=== PATIENT | male | born 1980 | race Caucasian/White ===

== ENCOUNTER 2020-01-18 10:18 | Emergency (ER) | payer MEDICAID, OTHER ==
[~2020-01-18] VITALS: Ht 165.1 cm; Wt 55.0 kg
[2020-01-18 10:24] VITALS: BP 115/66
[2020-01-18 11:13] LABS: BASOPHILS # (AUTO) 0.1 X10'3 (0-0.2); BASOPHILS % (AUTO) 0.4 % (0-1); EOSINOPHILS % (AUTO) 0.1 % (0-6); HEMATOCRIT 39.1 % (42.0-52.0); HEMOGLOBIN 13.2 g/dl (14.0-17.9); LYMPHOCYTES # (AUTO) 2.1 X10'3 (1.1-4.8); LYMPHOCYTES % (AUTO) 13.3 % (21-51); MEAN CORPUSCULAR HGB CONC 33.7 g/dL (33.0-36.5); MEAN PLATELET VOLUME 9.5 FL (7.4-10.4); MONOCYTES # (AUTO) 0.9 X10'3 (0-0.9); MONOCYTES % (AUTO) 5.9 % (2-12); NEUTROPHILS # (AUTO) 12.5 X10'3 (1.8-7.7); NEUTROPHILS % (AUTO) 80.3 % (42-75); PLATELET COUNT 232 X10'3 (140-440); RED BLOOD COUNT 4.25 X10'6 (4.70-6.10); RED CELL DISTRIBUTION WIDTH 13.6 % (11.5-14.5); WHITE BLOOD COUNT 15.6 X10'3 (4.5-11.0)
[2020-01-18 11:25] LABS: PARTIAL THROMBOPLASTIN TIME 34 SECONDS (22-32)
[2020-01-18 11:41] LABS: ALANINE AMINOTRANSFERASE 18 U/L (12-78); ALBUMIN 3.6 G/DL (3.4-5.0); ALBUMIN/GLOBULIN RATIO 0.9 (1.1-1.5); ALKALINE PHOSPHATASE 104 IU/L (46-116); ANION GAP 9 (8-16); ASPARTATE AMINO TRANSFERASE 16 U/L (10-37); BILIRUBIN,TOTAL 0.8 MG/DL (0.1-1.0); BLOOD UREA NITROGEN 15 MG/DL (7-18); BUN/CREATININE RATIO 12.3 (5.4-32.0); CALCIUM 9.1 MG/DL (8.5-10.1); CHLORIDE 102 MMOL/L (99-107); CREATININE 1.22 MG/DL (0.60-1.10); GLUCOSE 104 MG/DL (70-104); MAGNESIUM 1.7 MG/DL (1.5-2.4); SODIUM 137 MMOL/L (135-145); TOTAL CARBON DIOXIDE 25.8 MMOL/L (24-32); TOTAL PROTEIN 7.6 G/DL (6.4-8.2); eGFR 66 ML/MIN
[2020-01-18 11:42] LABS: POTASSIUM 2.9 MMOL/L (3.5-5.1)
[2020-01-18 12:27] LABS: CLARITY,URINE CLOUDY (Clear); COLOR,URINE YELLOW (Yellow); GLUCOSE, URINE NEGATIVE (Neg); KETONES,URINE TRACE mg/dl (Neg); LEUKOCYTE ESTERASE ,URINE TRACE (Neg); NITRITES, URINE NEGATIVE (Neg); OCCULT BLOOD,URINE SMALL (Neg); PH,URINE 5.5 (4.8-8.0); PROTEIN,URINE 100 mg/dl (Neg)
[2020-01-18 12:28] LABS: UA COLLECTION TYPE CLN CATCH MIDSTREAM
[2020-01-18 12:29] LABS: MUCUS STRANDS MODERATE /LPF (Neg); SQUAMOUS EPITHELIAL CELL,UR FEW /LPF (FEW)
[2020-01-18 12:30] LABS: BACTERIA,URINE 2+ /HPF (Neg); SPERM MANY /HPF (NEGATIVE)
[2020-01-18 12:31] LABS: CAL OXALATE CRYSTALS 1+ /HPF (NEGATIVE); WBC,URINE 20-30 /HPF (0-4)
[2020-01-18] MEDS ORDERED: piperacillin/tazo 3.375gm/50ml 50 ML IV ONE (12:50)
[2020-01-18] MEDS ORDERED: ABAC1TAB14 PO (16:21)
[2020-01-20] MEDS ORDERED: CLIN-5 PO (08:29)
[2020-01-20] MEDS ORDERED: HYDR-4383 PO (08:29)
== END 2020-01-18 12:59 | disposition left against medical advice (07) ==
LOC: ER 10:18
DX: L03.115 Cellulitis of right lower limb (principal); A41.9 Sepsis, unspecified organism; F17.200 Nicotine dependence, unspecified, uncomplicated; F12.90 Cannabis use, unspecified, uncomplicated
CPT/HCPCS: 36415; 71045; 80053; 81001; 83605; 83735; 84145; 85025; 85610; 85730; 87040; 87088; 93005; 99285

== ENCOUNTER 2020-02-07 04:35 | Emergency (ER) | payer MEDICAID, OTHER ==
[~2020-02-07] VITALS: Ht 165.1 cm; Wt 56.0 kg
[~2020-02-07 04:35] MED LIST: ABAC1TAB14 PO; HYDR-4383 PO
[2020-02-07 07:49] LABS: BASOPHILS # (AUTO) 0.1 X10'3 (0-0.2); BASOPHILS % (AUTO) 1.2 % (0-1); EOSINOPHILS # (AUTO) 0.2 X10'3 (0-0.9); EOSINOPHILS % (AUTO) 1.6 % (0-6); HEMATOCRIT 40.7 % (42.0-52.0); HEMOGLOBIN 13.8 g/dl (14.0-17.9); LYMPHOCYTES # (AUTO) 4.1 X10'3 (1.1-4.8); LYMPHOCYTES % (AUTO) 36.1 % (21-51); MEAN CORPUSCULAR HEMOGLOBIN 30.9 PG (27.0-31.0); MEAN CORPUSCULAR HGB CONC 33.8 g/dL (33.0-36.5); MEAN CORPUSCULAR VOLUME 91.4 FL (78-98); MONOCYTES # (AUTO) 0.9 X10'3 (0-0.9); MONOCYTES % (AUTO) 8.3 % (2-12); NEUTROPHILS # (AUTO) 5.9 X10'3 (1.8-7.7); NEUTROPHILS % (AUTO) 52.8 % (42-75); PLATELET COUNT 369 X10'3 (140-440); RED BLOOD COUNT 4.45 X10'6 (4.70-6.10); RED CELL DISTRIBUTION WIDTH 13.8 % (11.5-14.5); WHITE BLOOD COUNT 11.3 X10'3 (4.5-11.0)
[2020-02-07 08:01] LABS: ALANINE AMINOTRANSFERASE 22 U/L (12-78); ALBUMIN 3.3 G/DL (3.4-5.0); ALBUMIN/GLOBULIN RATIO 0.7 (1.1-1.5); ALKALINE PHOSPHATASE 143 IU/L (46-116); ANION GAP 9 (8-16); ASPARTATE AMINO TRANSFERASE 15 U/L (10-37); BILIRUBIN,TOTAL 0.4 MG/DL (0.1-1.0); BLOOD UREA NITROGEN 21 MG/DL (7-18); BUN/CREATININE RATIO 24.4 (5.4-32.0); CALCIUM 8.2 MG/DL (8.5-10.1); CHLORIDE 104 MMOL/L (99-107); CREATININE 0.86 MG/DL (0.60-1.10); GLUCOSE 107 MG/DL (70-104); POTASSIUM 3.7 MMOL/L (3.5-5.1); SODIUM 137 MMOL/L (135-145); TOTAL CARBON DIOXIDE 23.9 MMOL/L (24-32); eGFR > 90 ML/MIN
--- NOTE | 2020-02-07 10:18 | NUR ---
PT REMAINS SLEEPING IN POC. VSS. WAITING LAB RESULTS.
[2020-02-07 10:28] LABS: CREATINE KINASE 90 U/L (39-308)
[2020-02-07] MEDS ORDERED: ketorolac tromethamine 15mg/ml inj. IV ONE (11:35)
[2020-02-07] MEDS ORDERED: normal saline 1000ML IV soln IVB ONE (11:35)
[2020-02-07] MEDS ORDERED: morphine 4 MG/ML inj SYRINge IV ONE (11:35)
[2020-02-07] MEDS ORDERED: morphine 2 MG/ML inj. syringe IV PRN (11:35)
[2020-02-07] MEDS ORDERED: vancomycin/NS 1 GM ADD-VANTAGE 250 ML IV ONE (11:40)
[2020-02-07] MEDS ORDERED: CefTRIAXone 250MG IM Kit w/LIDOcaine IM ONE (12:15)
[2020-02-07] MEDS ORDERED: azithromycin 250mg tablet PO ONE (12:15)
[2020-02-07] MEDS ORDERED: TETanus/Pertussis (Acell)/Diphther VAC/PF (Tdap-Adult) 0.5ml syringe IMVAC ONE (12:45)
[2020-02-07] MEDS ORDERED: LIDOcaine 1% W/epiNEPHrine 1:200,000 10ml vial IJ ONE (12:45)
--- NOTE | 2020-02-07 12:58 | NUR ---
PROVIDER AT BED SIDE, PERFORMING WOUND CARE
[2020-02-07] MEDS ORDERED: CEPH250T PO (14:32)
[2020-02-07] MEDS ORDERED: AMOX-422 PO (14:32)
[2020-02-07] MEDS ORDERED: HYDR-3965 PO (14:32)
[2020-02-07] MEDS ORDERED: amox tr/potassium clavulanate 875/125mg TAB PO ONE (14:35)
[2020-02-07 15:13] VITALS: BP 123/78
--- NOTE | 2020-02-15 10:00 | NUR ---
PT CALLED REGARDING VISIT ON 02/07/20. NO ANSWER, MESSAGE LEFT TO CALL BACK [facility] FOR NEED OF TREATMENT.
--- NOTE | 2020-02-18 10:02 | NUR ---
PT CALLED REGARDING VISIT ON 02/07/20. NO ANSWER, MESSAGE LEFT TO CALL BACK [facility] FOR NEED OF TREATMENT.
--- NOTE | 2020-02-19 09:48 | NUR ---
PT CALLED AND NOTIFIED THAT HIS LAB RESULTS FROM 02/07/20 HAD A POSITIVE RPR FOR SYPHILIS. PT STATES THAT HE WAS NOTIFIED BY [facility]. PT INFORMED THAT HE NEEDE TO COME IN AND BE TX WITH [facility] SOON POSSIBLE AND THAT HE NEEDED TO NOTIFY ALL OF HIS INTIMATE CONTACTS SO THAT THEY ALSO COULD BE TREATED. PT STATED UNDERSTANDING.
== END 2020-02-07 15:14 | disposition home or self-care (01) ==
LOC: ER 04:36
DX: L02.811 Cutaneous abscess of head [any part, except face] (principal); L03.011 Cellulitis of right finger; F17.200 Nicotine dependence, unspecified, uncomplicated; F12.90 Cannabis use, unspecified, uncomplicated; Z20.2 Contact with and (suspected) exposure to infections with a predominantly sexual mode of transmission; Z79.2 Long term (current) use of antibiotics
CPT/HCPCS: 10061; 36415; 80053; 82550; 83874; 85025; 85651; 86140; 86592; 87491; 87591; 90471; 90715; 96365; 96366; 96372; 96375; 99284; J0696; J1885; J2270; J3370; J7030

== ENCOUNTER 2020-07-16 06:37 | Emergency (ER) | payer MEDICAID, OTHER ==
[~2020-07-16] VITALS: Ht 165.1 cm; Wt 63.5 kg
[2020-07-16 07:30] LABS: CLARITY,URINE SLIGHTLY CLOUDY (Clear); COLOR,URINE YELLOW (Yellow); GLUCOSE, URINE NEGATIVE (Neg); KETONES,URINE NEGATIVE (Neg); LEUKOCYTE ESTERASE ,URINE TRACE (Neg); NITRITES, URINE NEGATIVE (Neg); OCCULT BLOOD,URINE LARGE (Neg); PH,URINE 5.5 (4.8-8.0); PROTEIN,URINE NEGATIVE (Neg); UROBILINOGEN,URINE 0.2 E.U/dL (0.2-1.0)
[2020-07-16 07:33] LABS: UA COLLECTION TYPE CLN CATCH MIDSTREAM
[2020-07-16 07:36] LABS: WBC,URINE 50-100 /HPF (0-4)
[2020-07-16 07:37] LABS: BACTERIA,URINE FEW /HPF (Neg); CAL OXALATE CRYSTALS 1+ /HPF (NEGATIVE); RBC,URINE 50-100 /HPF (0-2); SQUAMOUS EPITHELIAL CELL,UR FEW /LPF (FEW)
[2020-07-16 07:38] LABS: FINE GRANULAR CAST 0-3 /LPF (NEGATIVE); WBC CLUMPS,URINE FEW /HPF (NEGATIVE)
[2020-07-16 07:39] LABS: MUCUS STRANDS FEW /LPF (Neg)
[2020-07-16 08:02] LABS: BASOPHILS # (AUTO) 0.1 X10'3 (0-0.2); BASOPHILS % (AUTO) 0.8 % (0-1); EOSINOPHILS # (AUTO) 0.2 X10'3 (0-0.9); EOSINOPHILS % (AUTO) 1.9 % (0-6); HEMATOCRIT 38.5 % (42.0-52.0); HEMOGLOBIN 13.2 g/dl (14.0-17.9); LYMPHOCYTES % (AUTO) 28.7 % (21-51); MEAN CORPUSCULAR HEMOGLOBIN 31.2 PG (27.0-31.0); MEAN CORPUSCULAR HGB CONC 34.2 g/dL (33.0-36.5); MEAN CORPUSCULAR VOLUME 91.1 FL (78-98); MONOCYTES # (AUTO) 0.9 X10'3 (0-0.9); MONOCYTES % (AUTO) 8.6 % (2-12); NEUTROPHILS # (AUTO) 6.4 X10'3 (1.8-7.7); PLATELET COUNT 278 X10'3 (140-440); RED BLOOD COUNT 4.22 X10'6 (4.70-6.10); RED CELL DISTRIBUTION WIDTH 13.5 % (11.5-14.5); WHITE BLOOD COUNT 10.6 X10'3 (4.5-11.0)
[2020-07-16 08:08] LABS: ALANINE AMINOTRANSFERASE 21 U/L (12-78); ALBUMIN 3.4 G/DL (3.4-5.0); ALBUMIN/GLOBULIN RATIO 0.9 (1.1-1.5); ALKALINE PHOSPHATASE 99 IU/L (46-116); ANION GAP 9 (8-16); ASPARTATE AMINO TRANSFERASE 18 U/L (10-37); BILIRUBIN,TOTAL 0.1 MG/DL (0.1-1.0); BLOOD UREA NITROGEN 24 MG/DL (7-18); BUN/CREATININE RATIO 16.1 (5.4-32.0); CALCIUM 8.8 MG/DL (8.5-10.1); CHLORIDE 105 MMOL/L (99-107); CREATININE 1.49 MG/DL (0.60-1.10); GLUCOSE 118 MG/DL (70-104); LIPASE 109 U/L (73-393); POTASSIUM 3.9 MMOL/L (3.5-5.1); SODIUM 139 MMOL/L (135-145); TOTAL CARBON DIOXIDE 25.2 MMOL/L (24-32); TOTAL PROTEIN 7.3 G/DL (6.4-8.2); eGFR 53 ML/MIN
[2020-07-16] MEDS ORDERED: azithromycin 250mg tablet PO ONE (08:55)
[2020-07-16] MEDS ORDERED: CefTRIAXone 250MG IM Kit w/LIDOcaine IM ONE (08:55)
[2020-07-16] MEDS ORDERED: iohexol 300mg/ml 100ml inj. ONE (09:03)
--- NOTE | 2020-07-16 09:14 | NUR ---
To CT via w/c.
[2020-07-16] MEDS ORDERED: tamsulosin 0.4mg capsule PO ONE (10:50)
[2020-07-16] MEDS ORDERED: tamsulosin 0.4mg capsule PO SCH (10:50)
[2020-07-16] MEDS ORDERED: PROC-8 PO (10:53)
[2020-07-16] MEDS ORDERED: FLO0.4C PO (10:53)
[2020-07-16] MEDS ORDERED: ACET-3068 PO (10:53)
[2020-07-16 11:15] VITALS: BP 125/89
== END 2020-07-16 11:30 | disposition home or self-care (01) ==
LOC: ER 06:38
DX: N13.2 Hydronephrosis with renal and ureteral calculous obstruction (principal); F17.200 Nicotine dependence, unspecified, uncomplicated; F12.90 Cannabis use, unspecified, uncomplicated; F15.90 Other stimulant use, unspecified, uncomplicated; Z21 Asymptomatic human immunodeficiency virus [HIV] infection status; Z79.899 Other long term (current) drug therapy
CPT/HCPCS: 36415; 74177; 80053; 81001; 83690; 85025; 87088; 87491; 87591; 96372; 99285; J0696; Q9967; 99284

== ENCOUNTER 2020-12-01 23:17 | Emergency (ER) | payer MEDICAID ==
[~2020-12-01] VITALS: Ht 165.1 cm; Wt 63.6 kg
[~2020-12-01 23:17] MED LIST changes: +PROC-8 PO
[2020-12-02] MEDS ORDERED: CEPH-585 PO (00:54)
[2020-12-02] MEDS ORDERED: cephalexin 250mg capsule PO ONE (00:55)
[2020-12-02 01:18] VITALS: BP 129/88
== END 2020-12-02 01:33 | disposition home or self-care (01) ==
LOC: ER 23:18
DX: L02.611 Cutaneous abscess of right foot (principal); L03.115 Cellulitis of right lower limb; M25.471 Effusion, right ankle; F12.90 Cannabis use, unspecified, uncomplicated; F15.90 Other stimulant use, unspecified, uncomplicated; Z79.2 Long term (current) use of antibiotics
CPT/HCPCS: 99283

== ENCOUNTER 2021-12-13 18:12 | Emergency (ER) | payer MEDICAID ==
[~2021-12-13] VITALS: Ht 165.1 cm; Wt 63.6 kg
[2021-12-13 18:20] VITALS: BP 152/99
== END 2021-12-13 19:38 | disposition left against medical advice (07) ==
LOC: ER 18:13
DX: M79.601 Pain in right arm (principal); Z53.21 Procedure and treatment not carried out due to patient leaving prior to being seen by health care provider